=== PATIENT | female | born 1970 | race Caucasian/White ===

== ENCOUNTER 2024-09-17 12:20 | Emergency (ER) | payer OTHER, SELFPAY ==
[2024-09-17 12:29] VITALS: BP 130/84; PULSE 70; RESP 18; TEMP 36.4; O2SAT 100
--- NOTE | 2024-09-17 13:04 | ED.EAR ---
HPI - Ear Problem General Chief complaint: Ear Stated complaint: rt ear discomfort Time Seen by Provider: 09/17/24 12:40 Source: patient and RN notes reviewed Mode of arrival: ambulatory Limitations: no limitations History of Present Illness HPI Narrative: DD 3-year-old female [facility] with spouse complaining of right ear discomfort. Patient states has been going on for last for 5 days. She reports decreased hearing and mild discomfort her right ear. She says she has been using Debrox with no relief. She has a history of impacted ear wax and ear infections. She has seen an ENT before for a perforated left eardrum. She reports some dizziness that is worse with turning her head or bending down. Reports dizziness with feels like the room is spinning. She denies dizziness while remaining still. She denies any chest pain, and shortness of breath, and syncope, lightheadedness, fevers, congestion, sore throat. Related Data Allergies Allergy/AdvReac Type Severity Reaction Status Date / Time morphine Allergy Unknown unknown Verified 09/17/24 12:29 Review of Systems Review of Systems: CONSTITUTIONAL: Denies fever, chills, or sweats. EYES: Denies visual changes, redness, or discharge. ENT: Denies rhinorrhea, congestion, sore throat. Positive for right ear discomfort, right ear fullness. CARDIOVASCULAR: Denies chest pain, palpitations, syncope, lightheadedness, edema. RESPIRATORY: Denies cough or dyspnea. GASTROINTESTINAL: Denies abdominal pain, nausea, vomiting, or diarrhea. GENITOURINARY: Denies dysuria or hematuria. SKIN: Denies rash or itching. MUSCULOSKELETAL: Denies back pain, joint pain, or myalgia. NEUROLOGIC: Denies headache, numbness, or weakness. Positive for dizziness. PSYCHIATRIC: Denies anxiety or depression. All other systems reviewed are negative, except as documented in HPI. [facility] Past Medical History Medical History Lump in female breast 2014 Family History Family History Mother Cerebrovascular accident Breast cancer Heart disease Depression Social History Social History Smoking packs per day: 0.5 Smoking cigarettes per day: 10.0 Years smoked: 17 Smoking pack-years: 8.50 Smoking status: Current every day smoker Tobacco type: cigarettes Second hand tobacco smoke exposure: Yes Alcohol intake: former Substance use: former Living arrangements: with roommate(s) Occupation/Education: occupation Gender identity (if verbalized by the patient): Female Sexual Orientation (if Verbalized by the Patient): Straight or Heterosexual Spiritual care concerns: Yes Agree to blood products: Yes Comments At the time of my signature, I reviewed and agree with the nursing past medical, surgical, social, and family history. There is no relevant family history pertinent to the patient complaint. Exam Narrative: GENERAL: This is a well-nourished, well-developed adult, in no apparent distress. They are non ill-appearing, nontoxic appearing. HEAD: normocephalic, atraumatic. EYES: Sclera clear/white. Vision is grossly intact. Pupils PERRLA. Extraocular movements intact. No nystagmus present. EARS: External ears normal, right auditory canal with impacted cerumen. Left auditory canal with scant amount of cerumen present, non impacted, canal without swelling, discharge, erythema. Able to visualize right TM somewhat due to excessive cerumen, but right TM appears intact without redness, swelling or discharge., left TM normal without perforation. Hearing grossly intact. NOSE: External nose normal with no obvious nasal discharge, nares without redness, no rhinorrhea. THROAT: Mucous membranes moist, posterior pharynx clear. NECK: Normal range of motion CARDIOVASCULAR: Regular rate and rhythm RESPIRATORY: Normal respiratory rate. Respiratory effort is nonlabored. No respiratory distress GASTROINTESTINAL: Abdomen soft, non-tender, nondistended. Bowel sounds are active. No hepato-splenomegaly, or palpable masses. No guarding. SKIN: warm, Dry, intact with no suspicious lesions or rash, good texture and turgor. NEURO: awake, alert, and oriented to person, place and time. There were no obvious focal neurologic abnormalities. No facial droop, no slurred speech. EXTREMITIES: No joint tenderness, effusion, or edema noted. Course Course Emergency Course: Patient is aware of diagnosis, understands and agrees to treatment plan. Anticipatory guidance given. Patient agrees to follow-up as directed and is aware of reasons to seek care at the emergency department. Portions of this record may have been created with voice recognition software Level of Care: [facility] Visit Vital Signs Vital signs: Vital Signs Temperature 97.5 F L 09/17/24 12:29 Pulse Rate 70 09/17/24 12:29 Respiratory Rate 18 09/17/24 12:29 Blood Pressure 130/84 09/17/24 12:29 Pulse Oximetry 100 09/17/24 12:29 Oxygen Delivery Room Air 09/17/24 12:29 Temperature 97.5 F L 09/17/24 12:29 Pulse Rate 70 09/17/24 12:29 Respiratory Rate 18 09/17/24 12:29 Blood Pressure 130/84 09/17/24 12:29 Pulse Oximetry 100 09/17/24 12:29 Oxygen Delivery Room Air 09/17/24 12:29 Reviewed Procedures Ear Wax Removal Right Ear: Ear Wax Removal Date: 09/17/24 Ear Wax Removal Time: 12:45 Cerumenolytic Used: other (Water with a small amount of hydrogen peroxide) Results: Re-examined: some cerumen remains TM Examination: TM(s) intact, normal appearance Ear Canal Exam: atraumatic and other (Discharge present, canal is erythemic. ) Patient Tolerated Procedure: well Complications: no problems Technique: ear canal irrigated and ear canal curetted Medical Decision Making MDM Narrative Medical decision making narrative: Successful ear irrigation and curette to the right ear. Majority of ear wax is removed. Canal appears erythemic without swelling however scant amount of discharge is present. Right TM is intact without signs of infection. Patient says her dizziness has significantly improved along with improved hearing to the right side. Will treat prophylactically with ofloxacin ear drops. Discussed physical exam findings. Advised supportive measures and signs/symptoms to go to the ER. Pt is appropriate for outpt treatment and f/u. Differential Diagnosis Differential Diagnosis: Impacted cerumen, Otitis media, otitis externa, vertigo Vital Signs Vital Signs: Vital Signs Temperature 97.5 F L 09/17/24 12:29 Pulse Rate 70 09/17/24 12:29 Respiratory Rate 18 09/17/24 12:29 Blood Pressure 130/84 09/17/24 12:29 Pulse Oximetry 100 09/17/24 12:29 Oxygen Delivery Room Air 09/17/24 12:29 Temperature 97.5 F L 09/17/24 12:29 Pulse Rate 70 09/17/24 12:29 Respiratory Rate 18 09/17/24 12:29 Blood Pressure 130/84 09/17/24 12:29 Pulse Oximetry 100 09/17/24 12:29 Oxygen Delivery Room Air 09/17/24 12:29 Critical Care Time Critical Care Time Critical Care Time: No Discharge Plan Discharge Clinical Impression: Impacted cerumen of right ear Patient Disposition: Home Condition: Stable Instructions: Antibiotic Form, Swimmer's Ear (ED) Additional Instructions: Take antibiotic drops as directed. Tylenol and ibuprofen every 8 hours as needed to reduce fever, pain Do not use debrox in your right ear until your done with the antibiotics and the infection is cleared. Avoid water or anything into the ear for one week You may need to follow-up with ENT if your symptoms persist Follow up with your personal physician for further evaluation and treatment within 3-5days. If your symptoms persist, change or worsen significantly, go to the emergency department for further evaluation. Patient Language: Czech Prescriptions: New ofloxacin 0.3 % drops 10 drp RIGHT EAR DAILY 7 Days Qty: 10 0RF No Action Ear Wax Drops 6.5 % drops 10 drp RIGHT EAR Q12H 4 Days Qty: 15 0RF Follow-up/Referrals: PHYSICIAN,DIGITAL FIELD SERVICE TECHNICIAN [Primary Care Provider] - Donta Chester MD [Physician] - Time of Disposition: 13:00
--- OUTSIDE RECORDS SUMMARY | 2024-09-17 13:20 | XMS_ITS | Clinical Summary ---
Author Organization [facility] Address [address] [place] [address] Care Team Providers Care Industrial Illuminating Engineer Name Role Phone None, Provider Primary Care Provider Unavaila ble Allergies Active Allergy Reactions Criticality Noted Date Comments Hydromorphone Vomiting High 06/09/2023 Fentanyl Vomiting High 06/09/2023 Morphine Vomiting High 06/09/2023 Medications * This document contains information received from the source organization and may not represent a complete record from that organization. No known medications Active Problems No known active problems Immunizations Immunization Administration Dates Next Due Tdap (Boostrix) 06/29/2023 Social History Tobacco Use Types Packs/Day Years Used Date Smoking Tobacco: Every Day Cigarettes Smokeless Tobacco: Never Tobacco Cessation:Ready to Q uit: Not Asked; Counseling Given: Not Answered Alcohol Use Standard Drinks/Week Comments Not Currently 0 (1 standard drink = 0.6 oz pur e alcohol) Comments No Sex and Gender Information Value Date Recorded Sex Assigned at Not on file Legal Sex Female 8:01 PM CDT Gender Identity Not on file Sexual Orientation Not on file Last Filed Vital Signs Vital Sign Reading Time Taken Comments Blood Pressure 138/90 05/21/2024 1:58 PM HEAT READER Pulse 55 05/21/2024 1:58 PM HEAT READER Temperature 36.3 C (97.4 F) 05/21/2024 1:58 PM HEAT READER Respiratory Rate 18 05/21/2024 1:58 PM HEAT READER Oxygen Saturation 100% 05/21/2024 1:58 PM HEAT READER Inhaled Oxygen Concentration - - Weight 56.7 kg (125 lb) 05/21/2024 12:13 PM HEAT READER Height 162.6 cm (5' 4 ) 05/21/2024 12:13 PM HEAT READER Body Mass Index 21.46 05/21/2024 12:13 PM HEAT READER Plan of Treatment Health Maintenance Due Date Last Done Comments Cervical Cancer Screening Pa p Smear (Age 30 to 64) Every 3 Years 1968 Colorectal Cancer Screening Colonoscopy (10 Years) 1968 Annual Physical 11/03/1971 Pneumococcal Vaccine: Pediat rics (0 to 5 Years) and At-Risk Patients (6 to 49 Years) (1 of 2 - PCV) 1974 Hepatitis C 1986 Hepatitis B Vaccines (1 of 3 - 19+ 3-dose series) 11/03/1987 Cervical Cancer Screening Pa p with HPV Testing (Age 30 to 64) Every 5 Years 1998 Cervical Cancer Screening with HPV 1998 Mammogram Screening 2008 Zoster Vaccines (1 of 2) 2018 COVID-19 Vaccine (1 - 2023-2 5 season) 2024 DTaP, Tdap and Td Vaccines ( 2 - Td or Tdap) 06/29/2033 06/29/2023 Meningococcal B Vaccine Aged Out No l onger eligible based on patient's age to complete this topic Meningococcal Vaccine Aged Out No christopher gavin eligible based on patient's age to complete this topic RSV Immunizations Under 20 Months Aged Out No longer eligible based on patient's age to complete this topic Insurance Care Teams Industrial Illuminating Engineer Relationship Specialty Start Date End Date None, Provider, MD PCP - General UNKNOWN PHYSICIAN SPECIALTY 06/09/23
--- OUTSIDE RECORDS SUMMARY | 2024-09-17 13:20 | XMS_ITS | Encounter Summary ---
Author Organization [facility] Address [address] [place] [address] Care Team Providers Care Director Writing Name Role Phone None, Provider Primary Care Provider Juanitoa ble Encounter Details Date Type Department Care Team (Late st Contact Info) Description 07/04/2023 [employer] Message [facility] [address] [place] [address] [place], [facility] Provider Patient Amendment Request Social History Tobacco Use Types Packs/Day Years Used Date Smoking Tobacco: Every Day Cigarettes Smokeless Tobacco: Never Alcohol Use Standard Drinks/Week Comments Not Currently 0 (1 standard drink = 0.6 oz pur e alcohol) Comments No Sex and Gender Information Value Date Recorded Sex Assigned at Not on file Legal Sex Female 8:01 PM CDT Gender Identity Not on file Sexual Orientation Not on file documented as of this encounter Plan of Treatment Not on file documented as of this encounter Visit Diagnoses Not on filedocumented in this encounter Care Teams Director Writing Relationship Specialty Start Date End Date None, Provider, PCP - General UNKNOWN PHYSICIAN SPECIALTY 06/09/23 documented as of this encounter
== END 2024-09-17 13:10 | disposition home or self-care (01) ==
DX: H61.21 Impacted cerumen, right ear (principal); F17.210 Nicotine dependence, cigarettes, uncomplicated
CPT/HCPCS: 69210; 99213; G0463

== ENCOUNTER 2025-04-16 11:57 | Outpatient (CLI) | payer OTHER, SELFPAY ==
[2025-04-16 12:14] LABS: Hematocrit 44.7 % (37.0-47.0); Hemoglobin 14.1 g/dL (12.0-15.0); Immature Granulocyte Percent A 0.4 % (0-0.5); Lymphocytes Absolute Auto 1.79 K/mm3 (0.9-3.2); Mean Corpuscular HGB Conc 31.5 g/dl (32-36); Mean Corpuscular Hemoglobin 29.7 pg (26-34); Mean Corpuscular Volume 94.1 fl (80-100); Nucleated Red Blood Cells Absolute Auto 0.000 K/mm3 (0.0-0.012); Nucleated Red Blood Cells Perc 0.0 % (0.0-0.2); Platelet Count Result 314 k/mm3 (150-375); Red Blood Count 4.75 M/mm3 (4.2-5.4); White Blood Count 6.7 K/mm3 (4.5-10.0)
[2025-04-16 12:35] LABS: Add Urine Microscopic? NO; Appearance Urine Clear (Clear); Glucose Urine UA Negative (Negative); Leukocyte Esterase Ur Negative LEU/UL (Negative); Nitrate Urine Negative (Negative); Specific Grav Ur 1.007 (1.001-1.035)
[2025-04-16 13:02] LABS: Alanine Aminotransferase 25 U/L (6-35); Albumin Level 4.2 g/dL (3.5-5.1); Alkaline Phosphatase 78 U/L (38-126); Anion Gap 9 mmol/L (4-12); Aspartate Amino Transferase 24 U/L (14-36); Bilirubin,Total 0.4 mg/dL (0.2-1.3); Blood Urea Nitrogen 8 mg/dL (7-17); CRP < 0.5 mg/dL (<1.0); Calcium 9.0 mg/dL (8.4-10.2); Carbon Dioxide 23 mmol/L (22-30); Chloride 103 mmol/L (98-107); Cholesterol 197 mg/dL (0-200); Estimated Glomerular Filt Rate > 60; Glucose 123 mg/dL (65-110); HDL Direct 73 mg/dL; Potassium 3.6 mmol/L (3.4-5.0); Sodium 135 mmol/L (137-145); Total Protein 7.3 g/dL (6.3-8.2); Triglycerides 160 mg/dL (<150)
--- OUTSIDE RECORDS SUMMARY | 2025-04-16 13:21 | XMS_ITS | Clinical Summary ---
Author Organization [facility] Address [address] [place] [address] Care Team Providers Care Biomedical Electronics Technician Name Role Phone Cait Del Angel Primary Care Provider Unavailabl e Source Comments [facility],non-owned Affiliates and Associated Physician Practices is amultiple site organization consisting of ambulatory clinics and hospital sitesin [place], [place], [place] and [place]. This disclosure is being madepursuant to the Care Everywhere program and may not contain all information available regarding this patient. 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 08/12/2012 Overview (09/04/2017): 02/14/12 EGD: No dysplasia Colon adenomas 08/12/2012 Overview (02/12/2025): 02/14/12 colonoscopy: one adenoma, repeat in 3-5 years Abdominal pain 02/29/2012 Overview (02/12/2025): 02/14/12 EGD: H pylori negative, duodenal biopsies normal 02/14/12 EGD: H pylori negative, duodenal biopsies normal Encounters Date Type Department Care Team Description 02/20/2025 Telephone [facility] Medical [facility] - Family Medicine [address] [facility], [address] [phone] Ama Mejia MD Appointment from Last 3 Months Immunizations Immunization Administration Dates Next Due TDAP, HISTORIC VACCINE 06/29/2023 Social History Tobacco Use Types Packs/Day Years Used Date Smoking Tobacco: Never Assessed Comments Unknown Sex and Gender Information Value Date Recorded Sex Assigned at Not on file Legal Sex Female 6:45 PM MOSAIC TECHNICIAN Gender Identity Not on file Sexual Orientation Not on file Plan of Treatment Health Maintenance Due Date Last Done Comments COLOGUARD (AGES 45-75) - COL ON CA SCREENING 1968 COLON MONITORING 1968 COLONOSCOPY - COLON CA SCREENING 1968 CT COLONOGRAPHY - COLON CA SCREENING 1968 Colorectal Cancer Screening 1968 FIT - COLON CA SCREENING 1968 FLEX SIG - COLON CA SCREENING 1968 LIPID TESTING 1968 MAMMOGRAM 1968 HIV SCREENING 11/03/1983 HEPATITIS B VACCINE (1 of 3 - 19+ 3-dose series) 11/03/1987 PAP SMEAR 1989 PNEUMOCOCCAL VACCINE 50+ (1 of 1 - PCV) 2018 ZOSTER VACCINE (1 of 2) 2018 DEPRESSION SCREENING 06/05/2024 COVID-19 VACCINE (1 - 2023-2 5 season) 2025 INFLUENZA VACCINE (#1) 2025 DTAP/TDAP/TD VACCINES (2 - T d or Tdap) 06/29/2033 06/29/2023 HEPATITIS C SCREENING Completed 08/12/2012 HIB VACCINE Aged Out No longer eligi ble based on patient's age to complete this topic HPV VACCINE Aged Out No longer eligi ble based on patient's age to complete this topic MENINGOCOCCAL (Group B) VACC INE SHARED DECISION-MAKING Aged Out No longer eligibl e based on patient's age to complete this topic MENINGOCOCCAL GROUPS A/C/Y/W VACCINE Aged Out No longer eligible b ased on patient's age to complete this topic Care Teams Biomedical Electronics Technician Relationship Specialty Start Date End Date Cait Del Angel Update Information PCP - General 12/31/12
[2025-04-16 13:33] LABS: Thyroid Stimulating Hormone 1.650 uIU/mL (0.465-4.680)
[2025-04-18 10:09] LABS: ANA by IFA Rfx Titer/Pattern Negative (.)
== END 2025-04-16 11:58 | disposition home or self-care (01) ==
LOC: ANHLAB 11:58
PROVIDERS: PCP Nurse Practitioner Adult Health; Visit Provider Nurse Practitioner Adult Health
DX: M05.20 Rheumatoid vasculitis with rheumatoid arthritis of unspecified site (principal); F41.1 Generalized anxiety disorder; Z13.6 Encounter for screening for cardiovascular disorders
CPT/HCPCS: 36415; 80053; 80061; 81003; 84443; 85025; 85652; 86038; 86140; 86430

== ENCOUNTER 2025-04-29 14:36 | Outpatient (CLI) | payer OTHER, SELFPAY ==
--- NOTE | ~2025-04-29 | US_ITS ---
EXAMINATION: US soft tissue LE RT, 04/29/2025 14:50 LOGISTICS TEAM LEADER HISTORY: R22.41 - Localized swelling, mass and lump, right lower limb Comparison: None Technique: Cheung-scale and color Doppler images were obtained. Findings: Correlating with the palpable area there is a thrombosed varicose vein noted which appears noncompressible. IMPRESSION: Thrombosed varicose vein detailed above. Dedicated ultrasound of the venous system is suggested Reviewed, dictated and finalized at location P. STICS TEAM LEADER IMPRESSION: Thrombosed varicose vein detailed above. Dedicated ultrasound of th e venous system is suggested
--- OUTSIDE RECORDS SUMMARY | 2025-04-29 16:26 | XMS_ITS | Clinical Summary ---
Author Organization [facility] Address [address] [place] [address] Care Team Providers Care Mixing Plant Dumper Name Role Phone Cait Del Angel Primary Care Provider Unavailabl e Source Comments [facility],non-owned Affiliates and Associated Physician Practices is amultiple site organization consisting of ambulatory clinics and hospital sitesin [place], [place], [place] and [place]. This disclosure is being madepursuant to the Care Everywhere program and may not contain all information available regarding this patient. Last updated 18.[facility] [employer] Allergies Active Allergy Reactions Criticality Noted Date [...] Type Department Care Team Description 02/20/2025 Telephone [facility] - Family Medicine [address] [facility], [address] [phone] Ama Mejia MD Appointment from Last 3 Months Immunizations Immunization Administration Dates Next Due TDAP, HISTORIC VACCINE 06/29/2023 Social History Tobacco Use Types Packs/Day Years Used Date Smoking Tobacco: Never Assessed Comments Unknown Sex and Gender Information Value Date Recorded Sex Assigned at Not on file Legal Sex Female 6:45 PM INTELLECTUAL PROPERTY COUNSEL Gender Identity Not on file Sexual Orientation [...] 19+ 3-dose series) 11/03/1987 Cervical Cancer Screening 1989 PAP SMEAR 1989 PAP with HPV 1998 PNEUMOCOCCAL VACCINE 50+ (1 of 1 - PCV) 2018 ZOSTER VACCINE (1 of 2) 2018 DEPRESSION SCREENING 06/05/2024 COVID-19 VACCINE (1 - 2024-2 6 season) 2025 INFLUENZA VACCINE (#1) 2025 DTAP/TDAP/TD [...] age to complete this topic Care Teams Mixing Plant Dumper Relationship Specialty Start Date End Date Cait Del Angel Update Information PCP - General 12/31/12
--- OUTSIDE RECORDS SUMMARY | 2025-04-29 16:26 | XMS_ITS | Encounter Summary ---
Author Organization [facility] Address [address] [place] [address] Care Team Providers Care Copy Center Associate Name Role Phone None, Provider Primary Care Provider Braulio ble Encounter Details Date Type Department Care Team ([facility] st Contact Info) Description 07/04/2023 [employer] Message [facility] [address] [place] [address] [place] [employer], [facility] Provider Patient Amendment Request Social History Tobacco [...] on filedocumented in this encounter Care Teams Copy Center Associate Relationship Specialty Start Date End Date None, Provider, PCP - General UNKNOWN PHYSICIAN SPECIALTY 06/09/23 documented as of this encounter
--- OUTSIDE RECORDS SUMMARY | 2025-04-29 16:26 | XMS_ITS | Clinical Summary ---
Author Organization [facility] Address [address] [place] [address] Care Team Providers Care Family Practice Nurse Practitioner Name Role Phone None, Provider Primary Care [...] Comments Blood Pressure 138/90 05/21/2024 1:58 PM BUILDING SUPERVISOR Pulse 55 05/21/2024 1:58 PM BUILDING SUPERVISOR Temperature 36.3 C (97.4 F) 05/21/2024 1:58 PM BUILDING SUPERVISOR Respiratory Rate 18 05/21/2024 1:58 PM BUILDING SUPERVISOR Oxygen Saturation 100% 05/21/2024 1:58 PM BUILDING SUPERVISOR Inhaled Oxygen Concentration - - Weight 56.7 kg (125 lb) 05/21/2024 12:13 PM BUILDING SUPERVISOR Height 162.6 cm (5' 4) 05/21/2024 12:13 PM BUILDING SUPERVISOR Body Mass Index 21.46 05/21/2024 12:13 PM BUILDING SUPERVISOR Plan of Treatment Health Maintenance Due Date Last Done Comments Cervical Cancer Screening Pa p Smear (Age 30 to 64) Every 3 Years 1968 Colorectal Cancer Screening Colonoscopy (10 Years) 1968 Annual Physical 11/03/1971 Hepatitis C 1986 Hepatitis B Vaccines (1 of 3 - 19+ 3-dose series) 11/03/1987 Pneumococcal Vaccine: 50+ Ye ars (1 of 2 - PCV) 11/03/1987 Cervical Cancer Screening Pa p with HPV Testing (Age 30 to 64) Every 5 Years 1998 Cervical Cancer Screening with HPV 1998 Mammogram Screening 2008 Zoster Vaccines (1 of 2) 2018 COVID-19 Vaccine (1 - 2024-2 6 season) 2025 Influenza Adult (#1) 2025 DTaP, Tdap and Td Vaccines ( 2 - Td or Tdap) 06/29/2033 06/29/2023 Hepatitis A Vaccines Aged Out No long er eligible based on patient's age to complete this topic Meningococcal B Vaccine Aged Out No l onger eligible based on patient's age to complete this topic Meningococcal Vaccine Aged Out No christopher gavin eligible based on patient's age to complete this topic RSV Immunizations Under 20 Months Aged Out No longer eligible based on patient's age to complete this topic Insurance Care Teams Family Practice Nurse Practitioner Relationship Specialty Start Date End Date None, Provider, PCP - General UNKNOWN PHYSICIAN SPECIALTY 06/09/23
== END 2025-04-29 14:37 | disposition home or self-care (01) ==
PROVIDERS: PCP Nurse Practitioner Adult Health; Visit Provider Nurse Practitioner Adult Health
DX: R22.41 Localized swelling, mass and lump, right lower limb (principal)
CPT/HCPCS: 76882

== ENCOUNTER 2025-05-14 15:16 | Outpatient (CLI) | payer OTHER, SELFPAY ==
--- NOTE | ~2025-05-14 | US_ITS ---
EXAMINATION: US venous doppler LE RT, 05/14/2025 15:28 CONSULTING ENGINEER HISTORY: R22.41 - Localized swelling, mass and lump, right lower limb Comparison: Comparison 04/29/2025. Technique: Cheung-scale and color Doppler images were attempted of the lower saphenofemoral junction, common femoral vein,superficial femoral vein, proximal deep femoral vein, proximal deep femoral vein, popliteal vein and posterior tibial veins. Findings: Deep Venous System:Normal flow, augmentation and compressibility. No echogenic thrombus identified. The contralateral saphenofemoral junction appears unremarkable. Superficial Venous SystemWithin the superficial venous system There is diminished flow within the right greater saphenous vein which appears noncompressible Soft tissues: Soft tissues are unremarkable. Impression: 1. Negative for DVT. Superficial thrombophlebitis Reviewed, dictated and finalized at location P. ULTING ENGINEER Impression: 1. Negative for DVT. Superficial thrombophlebitis
--- OUTSIDE RECORDS SUMMARY | 2025-05-14 20:21 | XMS_ITS | Clinical Summary ---
Author Organization [facility] Address [address] [place] [address] Care Team Providers Care Guide Travel Name Role Phone Cait Del Angel Primary Care Provider Unavailabl e Source Comments [facility],non-owned Affiliates and Associated Physician Practices is amultiple site organization consisting of ambulatory clinics and hospital sitesin [place], [place], [place] and [place]. This disclosure is being madepursuant to the Care Everywhere program and may not contain all information available regarding this patient. Last updated 18.[facility] [employer] Allergies Active Allergy Reactions Criticality Noted Date [...] Type Department Care Team Description 02/20/2025 Telephone [facility] Medical [facility] - Family Medicine [address] [facility], [address] [phone] Ama Mejia MD Appointment from Last 3 Months Immunizations Immunization Administration Dates Next Due TDAP, HISTORIC VACCINE 06/29/2023 Social History Tobacco Use Types Packs/Day Years Used Date Smoking Tobacco: Never Assessed Comments Unknown Sex and Gender Information Value Date Recorded Sex Assigned at Not on file Legal Sex Female 6:45 PM HEPATOLOGIST Gender Identity Not on file Sexual Orientation [...] age to complete this topic Care Teams Guide Travel Relationship Specialty Start Date End Date Cait Del Angel Update Information PCP - General 12/31/12
--- OUTSIDE RECORDS SUMMARY | 2025-05-14 20:21 | XMS_ITS | Clinical Summary ---
Author Organization [facility] Address [address] [place] [address] Care Team Providers Care Icebox Worker Name Role Phone None, Provider Primary Care [...] Comments Blood Pressure 138/90 05/21/2024 1:58 PM RESIDENT CARE AIDE Pulse 55 05/21/2024 1:58 PM RESIDENT CARE AIDE Temperature 36.3 C (97.4 F) 05/21/2024 1:58 PM RESIDENT CARE AIDE Respiratory Rate 18 05/21/2024 1:58 PM RESIDENT CARE AIDE Oxygen Saturation 100% 05/21/2024 1:58 PM RESIDENT CARE AIDE Inhaled Oxygen Concentration - - Weight 56.7 kg (125 lb) 05/21/2024 12:13 PM RESIDENT CARE AIDE Height 162.6 cm (5' 4) 05/21/2024 12:13 PM RESIDENT CARE AIDE Body Mass Index 21.46 05/21/2024 12:13 PM RESIDENT CARE AIDE Plan of Treatment Health Maintenance Due Date [...] to complete this topic Insurance Care Teams Icebox Worker Relationship Specialty Start Date End Date None, Provider, PCP - General UNKNOWN PHYSICIAN SPECIALTY 06/09/23
--- OUTSIDE RECORDS SUMMARY | 2025-05-14 20:21 | XMS_ITS | Encounter Summary ---
Author Organization [facility] Address [address] [place] [address] Care Team Providers Care Consumer Science Teacher Name Role Phone None, Provider Primary Care Provider Braulio ble Encounter Details Date Type Department Care Team ([facility] st Contact Info) Description 07/04/2023 [employer] [facility] INFORMATION MANAGEMENT [address] [place] [address] [place], [facility] Provider Patient Amendment Request Social History Tobacco [...] on filedocumented in this encounter Care Teams Consumer Science Teacher Relationship Specialty Start Date End Date None, Provider, PCP - General UNKNOWN PHYSICIAN SPECIALTY 06/09/23 documented as of this encounter
== END 2025-05-14 15:17 | disposition home or self-care (01) ==
PROVIDERS: PCP Nurse Practitioner Adult Health; Visit Provider Nurse Practitioner Adult Health
DX: R22.41 Localized swelling, mass and lump, right lower limb (principal)
CPT/HCPCS: 93971